=== PATIENT | male | born 1975 | race Caucasian/White ===

== ENCOUNTER 2020-06-23 06:50 | Emergency (ER) | payer BC, OTHER ==
[~2020-06-23] VITALS: Ht 182.9 cm; Wt 108.9 kg
[~2020-06-23 06:50] MED LIST: VITAMINS PO
[2020-06-23 07:10] VITALS: BP_SYST 132
[2020-06-23 07:44] VITALS: BP_SYST 132
== END 2020-06-23 07:43 | disposition home or self-care (01) ==
LOC: SED 06:50
DX: K64.4 Residual hemorrhoidal skin tags (principal); Z90.49 Acquired absence of other specified parts of digestive tract
CPT/HCPCS: 99283

== ENCOUNTER 2021-09-29 06:55 | Emergency (ER) | payer BC, SELFPAY ==
[~2021-09-29] VITALS: Ht 180.3 cm; Wt 108.9 kg
[2021-09-29] MEDS ORDERED: ANT30 PO (07:26)
[2021-09-29] MEDS ORDERED: ONDA-8 TL (07:26)
[2021-09-29] MEDS ORDERED: ONDANSETRON 4 MG ODT TAB PO ONE (07:30)
[2021-09-29] MEDS ORDERED: MAG-AL HYDROX/SIMETH 30 ML UDC PO ONE (07:30)
[2021-09-29 07:38] VITALS: BP_SYST 118
--- NOTE | 2021-09-29 07:43 | NUR ---
PT TRIAGED IN TENT, DR. PASTOR EXAMINED PT
[2021-09-29] MEDS ORDERED: AZIT-93 PO (08:39)
[2021-09-29 08:59] VITALS: BP_SYST 118
--- NOTE | 2021-09-29 08:59 | NUR ---
Patient given written and verbal discharge instructions and verbalizes understanding. ER MD discussed with patient the results and treatment provided. Patient in stable condition. ID arm band removed. Rx of given. Patient educated on pain management and to follow up with PMD. Pain Scale 0/10. Opportunity for questions provided and answered. Medication side effect fact sheet provided.
== END 2021-09-29 08:59 | disposition home or self-care (01) ==
LOC: SED 06:55
DX: U07.1 COVID-19 (principal); J12.82 Pneumonia due to coronavirus disease 2019; R10.13 Epigastric pain; Z79.899 Other long term (current) drug therapy
CPT/HCPCS: 71045; 99283; Q0162